=== PATIENT | male | born 1975 | race Caucasian/White ===

== ENCOUNTER 2017-05-08 17:10 | Emergency (ER) | payer SELFPAY ==
[2017-05-08 18:29] VITALS: BMI 27.7
--- NOTE | 2017-05-08 18:29 | PDOC ---
Rapid Medical Evaluation Chief Complaint: Lightheaded Time Seen by Provider: 05/08/17 18:27 Medical Evaluation: Allergies Allergy/AdvReac Type Severity Reaction Status Date / Time No Known Allergies Allergy Verified 05/08/17 18:26 05/08/17 18:28 pt c/o: fever, headache, weakness x 2 days Pt on brief exam: 100.4, + nasal congestion Pt ordered for : none pt to proceed to the ED:
--- NOTE | 2017-05-08 20:21 | PDOC ---
History of Present Illness - General Chief Complaint: Lightheaded Stated Complaint: DIZZINESS Time Seen by Provider: 05/08/17 18:27 - History of Present Illness Initial Comments: 05/08/17 21:02 The patient is a 42 year old male with a history of DM who presents for evaluation of nasal congestion, headache, body aches and generalized weakness. The patient reports a 2 day history of nasal congestion and headache with associated body aches and generalized weakness. He reports continued symptoms despite advil at home prompting his presentation to the ED for evaluation. He endorses some fevers, but otherwise denies chest pain, SOB, cough, nausea, vomiting, abdominal pain, or changes with urination or bowel movements. Past History - Past Medical History Allergies/Adverse Reactions: Allergies Allergy/AdvReac Type Severity Reaction Status Date / Time No Known Allergies Allergy Verified 05/08/17 18:26 Home Medications: Ambulatory Orders Sitagliptin Phosphate [Januvia] 100 mg PO BID 05/08/17 CVA: No COPD: No DVT: No - Immunization History Immunization Up to Date: Yes - Suicide/Smoking/Psychosocial Hx Smoking History: Never smoked Have you smoked in the past 12 months: No Information on smoking cessation initiated: No Hx Alcohol Use: No Drug/Substance Use Hx: No Substance Use Type: None Review of Systems - Review of Systems Comments:: 05/08/17 21:11 Constitutional: Fevers, chills, fatigue, malaise HEENT: Rhinorrhea, nasal congestion, No visual changes Cardiovascular: No chest pain, syncope, palpitations, lightheadedness Respiratory: No Cough, SOB, Hemoptysis, Gastrointestinal: No Abdominal pain, Nausea, Vomiting, Constipation, Diarrhea, Melena Genitourinary: No Dysuria, Frequency, Urgency, Hesitancy, Hematuria, Flank pain Musculoskeletal: No Myalgia, arthralgia Skin: No rashes, itching, bruising, pallor Neurologic: Headache. No Dizziness, Numbness, Weakness, or Tingling Psychiatric: No Hallucinations. No SI or HI *Physical Exam - Vital Signs Last Vital Signs Temp Pulse Resp BP Pulse Ox 100.4 F H 116 H 18 126/82 96 05/08/17 18:26 05/08/17 18:26 05/08/17 18:26 05/08/17 18:26 05/08/17 18:26 - Physical Exam Comments: 05/08/17 21:12 General Appearance: Nourished. No Apparent Distress HEENT: EOMI, APRIL. No Pharyngeal Erythema, Tonsillar Exudate, Tonsillar Erythema Neck: No Cervical Lymphadenopathy Respiratory/Chest: Lungs Clear, Normal Breath Sounds. No Crackles, Rales, Rhonchi, Wheezing Cardiovascular: Regular Rhythm, Regular Rate. No Murmur, Gallops, Rubs Gastrointestinal/Abdominal: Normal Bowel Sounds, Soft. No Guarding, Rebound, Tenderness Musculoskeletal: No CVA Tenderness Extremity: Normal Capillary Refill Integumentary: Normal Color, Dry, Warm Neurologic: Fully Oriented, Alert, Normal Mood/Affect, Normal Response, ED Treatment Course - LABORATORY CBC & Chemistry Diagram: 05/08/17 20:50 05/08/17 20:50 Medical Decision Making - Medical Decision Making 05/08/17 21:12 The patient is a 42 year old male with a history of DM who presents for evaluation of nasal congestion, headache, body aches and generalized weakness. Differential includes but is not limited to: influenza, viral syndrome, infectious, metabolic derangement. Given the patient's physical exam and history it is likely his symptoms are due to a viral syndrome. We will obtain a cbc, cmp to evaluate for other etiologies. We will treat the patient with iv fluids, benadryl, reglan, tylenol, and toradol here in the ED. We will continue to monitor and reassess. 05/08/17 23:03 CBC, cmp are unremarkable. The patient reports significant improvement in his symptoms. We are comfortable discharging the patient home at this time with primary care provider follow up. We discussed the results and the plan with the patient who voiced understanding and is agreeable with the plan. *DC/Admit/Observation/Transfer Diagnosis at time of Disposition: Viral illness - Discharge Dispostion Disposition: HOME Condition at time of disposition: Improved Admit: No - Referrals Referrals: Jonathan Daley MD [Staff Physician] - - Patient Instructions Printed Discharge Instructions: DI for Influenza -- Adult Additional Instructions: Please return to the ER if you experience concerning or worsening symptoms including worsening fevers, vomiting, or pain. Your lab results were normal here in the ER. Your symptoms are likely due to the flu or another viral illness. Please call to schedule a follow up appointment with your primary care provider within 3-4 days to further discuss your ER visit. - Post Discharge Activity
[2017-05-08] MEDS ORDERED: ACETAMINOPHEN 1000 MG/100 ML VIAL (NON FORMULARY) IVPB ONE (20:26)
[2017-05-08] MEDS ORDERED: METOCLOPRAMIDE HCL INJECTION 10 MG/2 ML VIAL IVPUSH ONE (20:26)
[2017-05-08] MEDS ORDERED: SODIUM CHLORIDE 1,000 ML IV STA (20:26)
--- NOTE | 2017-05-08 20:27 | PDOC ---
Attending Attestation - HPI HPI: 05/08/17 21:25 The patient is a 42 year old male, with a significant past medical history of DM , who presents to the emergency department with, approx. one day of headache, generalized body aches, subjective fever, congestion and cough. The patient reports he took an OTC cold medication this morning with mild relief. He denies any recent chest pain or shortness of breath. He denies any recent dysuria, frequency, urgency or hematuria. He denies any recent nausea, vomiting, constipation or diarrhea. Allergies: NKA Documentation prepared by Hemal Nuñez, acting as medical office technician for Kimberly Blue DO. - Physicial Exam PE: 05/08/17 21:49 Constitutional: Awake, alert, oriented. No acute distress. Head: Normocephalic. Atraumatic Eyes: PERRL. EOMI. Conjunctivae are not pale. ENT: +Rhinorrhea. Mucous membranes are moist and intact. Posterior pharynx without exudates or erythema. Uvula midline. Neck: Supple. Full ROM. No lymphadenopathy. Cardiovascular: +Tachycardia. Regular rhythm. S1, S2 regular. Distal pulses are 2+ and symmetric. Pulmonary/Chest: No evidence of respiratory distress. Clear to auscultation bilaterally No wheezing, rales or rhonchi. Abdominal: Soft and non-distended. There is no tenderness. No rebound, guarding or rigidity. No organomegaly. No palpable masses. Good bowel sounds. Back: No CVA tenderness. Musculoskeletal: No edema. No cyanosis. No clubbing. Full range of motion in all extremities. No calf tenderness. Radial/pedal pulses are intact and 2+ bilaterally Skin: Skin is warm and dry. No petechiae. No purpura. Neurological: Alert and oriented to person, place, and time. Cranial nerves II -XII are grossly intact. Normal speech. Strength is grossly symmetric. No sensory deficits. Psychiatric: Good eye contact. Normal interaction, affect and behavior. <Hemal Nuñez - Last Filed: 05/08/17 21:49> - Resident Resident Name: Corby Coronado - ED Attending Attestation I have performed the following: I have examined & evaluated the patient, The case was reviewed & discussed with the resident, I agree w/resident's findings & plan, Exceptions are as noted - Medical Decision Making 05/08/17 20:26 I, Dr. Kimberly Blue, DO, attest that this document has been prepared under my direction and personally reviewed by me in its entirety. I further attest, that it accurately reflects all work, treatment, procedures and medical decision -making performed by me. 05/08/17 22:16 re-eval: menard improved will add another liter ivf hydration will add magnesium neuro intact resting comfortably 05/08/17 22:16 a/p: 42yo male with hx of DM with 2 days of body aches, menard, cough, congestion, fevers at home -took over the counter medicine this AM -nothing since -will check labs, ivf hydration, reglan, benadryl, toradol, tylenol -fever control -will monitor and reassess -suspect influenza like-illness <Kimberly Blue - Last Filed: 05/08/17 22:18>
[2017-05-08] MEDS ORDERED: METOCLOPRAMIDE HCL INJECTION 10 MG/2 ML VIAL ONE (20:33)
[2017-05-08] MEDS ORDERED: ACETAMINOPHEN INJECTION 100 ML IVPB ONE (20:52)
[2017-05-08 20:56] LABS: BASO % 0.4 % (0-2.0); EOS % 0.8 % (0-4.5); HEMATOCRIT 46.6 % (35.4-49); HEMOGLOBIN 15.7 GM/dL (11.7-16.9); LYMPH % 7.2 % (8-40); MCHC 33.8 g/dl (32.0-35.9); MEAN CELL VOLUME 91.7 fl (80-96); MEAN PLT VOLUME 8.9 fl (7.5-11.1); MONO % 8.4 % (3.8-10.2); NEUT % 83.2 % (42.8-82.8); PLATELET COUNT 152 K/MM3 (134-434); RBC 5.08 M/mm3 (4.00-5.60); WHITE BLOOD COUNT 9.8 K/mm3 (4.0-10.0)
[2017-05-08] MEDS ORDERED: KETOROLAC TROMETHAMINE 30 MG/1 ML VIAL IVPUSH ONE (20:59)
[2017-05-08] MEDS ORDERED: KETOROLAC TROMETHAMINE 30 MG/1 ML VIAL ONE (21:34)
[2017-05-08 21:38] LABS: ANION GAP 7 (8-16); BLOOD UREA NITROGEN 12 mg/dL (7-18); CALCIUM 8.7 mg/dL (8.5-10.1); CHLORIDE 103 mmol/L (98-107); CO2 27 mmol/L (21-32); GLUCOSE,RANDOM 172 mg/dL (74-106); SGOT/AST 20 U/L (15-37); SGPT/ALT 32 U/L (12-78); SODIUM 137 mmol/L (136-145)
[2017-05-08 21:40] LABS: ALK PHOS 84 U/L (45-117); BILIRUBIN,TOTAL 0.5 mg/dL (0.2-1.0); TOT PROT 7.8 g/dl (6.4-8.2)
[2017-05-08] MEDS ORDERED: SODIUM CHLORIDE 0.9% 1000 ML INFUS.BAG IV ONE (22:16)
[2017-05-08] MEDS ORDERED: MAGNESIUM SULF 50% (8.12 MEQ/2 ML-1 GM VIAL) IVPB ONE (22:16)
[2017-05-08] MEDS ORDERED: MAGNESIUM SULF 50% (8.12 MEQ/2 ML-1 GM VIAL) ONE (22:37)
[2017-05-08 23:20] VITALS: BP 102/66; PULSE 77; TEMP 98.8
== END 2017-05-08 23:20 | disposition home or self-care (01) ==
LOC: JER 17:10 → JERFT 17:10 → JER 23:20
PROC: 3E033NZ Introduction of Analgesics, Hypnotics, Sedatives into Peripheral Vein, Percutaneous Approach (ICD-10-PCS; principal; 2017-05-08)
PROC: 3E0333Z Introduction of Anti-inflammatory into Peripheral Vein, Percutaneous Approach (ICD-10-PCS; 2017-05-08)
PROC: 3E033GC Introduction of Other Therapeutic Substance into Peripheral Vein, Percutaneous Approach (ICD-10-PCS; 2017-05-08)
PROC: 3E033GC Introduction of Other Therapeutic Substance into Peripheral Vein, Percutaneous Approach (ICD-10-PCS; 2017-05-08)
PROC: 3E033GC Introduction of Other Therapeutic Substance into Peripheral Vein, Percutaneous Approach (ICD-10-PCS; 2017-05-08)
DX: J11.1 Influenza due to unidentified influenza virus with other respiratory manifestations (principal); E11.9 Type 2 diabetes mellitus without complications; Z79.84 Long term (current) use of oral hypoglycemic drugs
CPT/HCPCS: 36415; 80053; 85025; 99282-25